=== PATIENT | female | born 1980 | race Caucasian/White ===

== ENCOUNTER → 2021-02-15 01:48 | Outpatient (CLI) | payer OTHER, SELFPAY ==
[2021-02-15 17:43] LABS: SARS-CoV-2 RNA PCR Negative
== END ==
PROVIDERS: Visit Provider Surgery Plastic and Reconstructive Surgery
DX: Z01.812 Encounter for preprocedural laboratory examination (principal); Z20.822 Contact with and (suspected) exposure to COVID-19
CPT/HCPCS: C9803; U0003; U0005

== ENCOUNTER 2021-02-18 07:21 | Day surgery (SDC) | payer OTHER, SELFPAY ==
[2021-02-18] VITALS (9 sets, daily range): BP systolic 97–118; BP diastolic 59–76; PULSE 55–84; RESP 12–17; TEMP 36.6–37.1; O2SAT 99–100; BMI 21.9
--- NOTE | 2021-02-18 07:05 | WPDANESEPPF ---
Anes - Initial Pre Proc Eval Procedure: Operation Date: 02/18/21 09:00 Proposed Procedures p Bilateral Breast Augmentation Mammoplasty - Gadiel Cleveland MD Date/Time: 02/18/21 07:05 Surgeon: Gadiel Cleveland MD Pre Op Diagnosis: Micromastia Patient Data Age: 40 Gender: F Height: Weight: Allergies Allergy/AdvReac Type Severity Reaction Status Date / Time No Known Allergies Allergy Verified 02/18/21 07:47 Home Medications Medication Instructions Recorded Confirmed Type docusate sodium 100 mg capsule 100 mg PO BID #21 cap 02/03/21 02/18/21 Rx ondansetron HCl 4 mg tablet 4 mg PO Q8H #14 tablet 02/03/21 02/18/21 Rx carisoprodol 350 mg tablet 350 mg PO TID PRN #21 tablet 02/09/21 02/18/21 Rx oxycodone-acetaminophen 5 mg-325 1 tablet PO Q6H PRN #15 tablet 02/09/21 02/18/21 Rx mg tablet Patient hx anesthesia problems: none Family hx anesthesia problems: none PMFSH Past Medical History Medical History (Updated 02/18/21 @ 07:05 by Luther Estrella DO) Anxiety Surgical History Surgical History History of History of shoulder surgery Social History Social History Smoking status: Smoker, status unknown Alcohol intake: current Drinks per week: 2 Substance use: never Last use: 01/11/2021 Living arrangements: with family Gender identity (if verbalized by the patient): Female Anes - Eval Final PreProcedure Day of Procedure 02/18/21 07:05 Patient weight: normal Heart: regular rate and rhythm Lungs: clear to auscultation and normal air movement Airway: Mallampati scale class II Neurological: alert and oriented Last oral intake: >/= 8 hours ASA classification: II Emergent: no Anesthetic plan: proceed Anesthesia type and monitoring: general LMA and standard monitoring Informed Consent: The patient's anesthetic plan and its attendant risks and benefits were discussed with the patient/family/POA. Questions were solicited and answers provided to the satisfaction of the patient/family/POA.
[2021-02-18] MEDS: LACTATED RINGERS 1,000 ML 30 ML IV CONT ×3 (08:04→10:12)
--- NOTE | 2021-02-18 08:31 | WPDHPUPDATE1 ---
History and Physical Update Update Date/Time: 02/18/21 08:31 History and Physical has been reviewed, including an updated exam of the patient. There are NO changes in the patient's condition. Risks, benefits, and alternatives have been discussed and questions answered. Patient agrees to proceed with procedure.
--- NOTE | 2021-02-18 08:44 | W.PM.PROC2 ---
Procedure Note - Detailed Date of Procedure 02/18/21 Pre-op Diagnosis Micromastia Post-op Diagnosis same Procedure Performed Bilateral Augmentation Mammaplasty Surgeon Gadiel Cleveland MD Anesthesia general Findings Bilateral Eris Soft Touch 520cc Right - REF# [id number] SN [id number] Left - REF# [id number] SN [id number] Description of Procedure She is here today for bilateral breast augmentation. Previously and again today the risks, benefits, alternatives were discussed in extensive detail. I wanted her to be very realistic about the risks involved as well as expectations. We discussed aftercare and what to monitor for. Made sure answered all of her questions to her satisfaction today and consent was obtained. Marked in the preoperative holding area with their verification. The patient was taken to the operating room placed supine on the operating table. Anesthesia was provided by anesthesiology. A surgical time-out was taken. We cleansed the skin and 1% lidocaine and 0.25% Marcaine with epinephrine was used anesthetize as a field block. She was prepped and draped in a standard sterile fashion. Tegaderm nipple Quick were placed. A 15 blade used to make an incision along the inframammary fold. Dissection was continued at 45 degree angle until the chest wall as identified. I incised the pectoralis major along its inferior border and completely released the inferior border leaving the medial border intact. I created a subpectoral pocket in the appropriate dimensions based on our preoperative planning for the implant. I then copiously irrigated with saline solution and verified a strict hemostasis. Next the use a triple antibiotic and Betadine containing solution to irrigate the pocket. I washed my gloves with the triple antibiotic and Betadine solution. We washed the implant immediately upon opening it with this solution and only opened it when we needed it. I used implant funnel and no-touch technique. The implant was introduced into the pocket using the funnel. Having verified positioning of the implant this was closed using 2-0 Vicryl followed by 3-0 Monocryl in a running subcuticular 4-0 Monocryl followed by tissue glue. Fluffs, Paul wrap, and surgical bra were placed. Patient was awoke and taken to PACU without difficulty. All instrument sponge counts were correct at the end of the case. Estimated Blood Loss 10 Drains No Packing No Pathology none sent Complications No immediate complications Condition stable Disposition PACU
[2021-02-18] MEDS: ceFAZolin SODIUM 2 GM/20 ML SW SYRINGE IV PUSH (09:05)
[2021-02-18] MEDS: LIDO 1%/EPINEPHRINE 1:100,000 20 ML VIAL 30 ML INFILTRATE (09:20)
[2021-02-18] MEDS: fentaNYL CITRATE INJ (*CRX) 100 MCG/2 ML VIAL 25 MCG IV PUSH (10:32)
[2021-02-18] MEDS: oxyCODONE HCL (*CRX) 5 MG TAB IR PO (11:23)
[2021-02-18] MEDS: ONDANSETRON HCL ODT 4 MG TABLET PO (11:50)
[2021-02-18] MEDS: SCOPOLAMINE 1.5 MG PATCH TRANSDERM (11:51)
--- NOTE | 2021-02-18 15:44 | WPDANESPN ---
Anes - Prog Note Post-Op Date/Time: 02/18/21 15:44 Cardiovascular status: normal Respiratory status: normal Airway patency: baseline Mental status: baseline Post-Op hydration status: normal Vital Signs: Last Vital Signs Temp 36.6 C 02/18/21 10:05 Pulse 64 02/18/21 11:06 Resp 14 02/18/21 11:06 BP 106/69 02/18/21 11:06 Pulse Ox 100 02/18/21 11:06 Pain Score (VAS): 0 I/O: Intake & Output 02/17/21 02/18/21 02/18/21 23:59 07:59 15:59 Intake Total 900 Balance 900 Post-procedural complaints: none Patient Feedback: Patient satisfied with anesthetic care. Other Findings: Patient vital signs have returned to baseline. Patient denies nausea or vomiting. Patient's pain under control. Patient ok for discharge.
== END 2021-02-18 12:00 | disposition home or self-care (01) ==
PROVIDERS: Visit Provider Surgery Plastic and Reconstructive Surgery
PROC: (CPT 19325; principal; 2021-02-18 09:00)
DX: N64.82 Hypoplasia of breast (principal)
CPT/HCPCS: 19325

== ENCOUNTER → 2023-06-07 13:03 | Outpatient (CLI) | payer OTHER, SELFPAY ==
--- NOTE | ~2023-06-07 | MM_ITS ---
EXAMINATION: MM scrn patricia implant BI [facility] HISTORY: Screening mammogram TECHNIQUE: Craniocaudal and mediolateral oblique 3-D tomosynthesis images with implant displacement a nd synthetic 2-D images were generated. Craniocaudal and mediolateral oblique views of the breasts wi thout implant displacement were obtained using full field digital mammography. CAD analysis was submi tted and interpreted. COMPARISON: No prior mammogram is available for comparison at this institution. BREAST PARENCHYMAL COMPOSITION: There are scattered areas of fibroglandular density. FINDINGS: RIGHT BREAST: A mass is present in the upper outer quadrant of the breast 6 cm from the nipple on the implant displaced views. LEFT BREAST: There is no evidence of suspicious mass, calcification, or architectural distortion to s uggest malignancy. IMPRESSION: 1. Right breast mass which may represent the patient's baseline however no comparison is currently av ailable. 2. Comparison with prior mammograms is necessary. BI-RADS Category 0: Incomplete: Needs comparison with prior mammograms. Reviewed, dictated and finalized at location A. IMPRESSION: 1. Right breast mass which may represent the patient's baseline however no comp arison is currently available. 2. Comparison with prior mammograms is necessary. BI-RADS Category 0: Incomplete: Needs comparison with prior mammograms.
== END ==
PROVIDERS: PCP Registered Nurse; Visit Provider Registered Nurse
DX: Z12.31 Encounter for screening mammogram for malignant neoplasm of breast (principal); R92.8 Other abnormal and inconclusive findings on diagnostic imaging of breast
CPT/HCPCS: 77063; 77067

== ENCOUNTER 2025-06-06 13:29 | Outpatient (CLI) | payer OTHER, SELFPAY ==
--- NOTE | ~2025-06-06 | MM_ITS ---
EXAMINATION: MM scrn patricia implant [facility] HISTORY: Screening mammogram TECHNIQUE: Craniocaudal and mediolateral oblique 3-D tomosynthesis images with implant displacement and synthetic 2-D images were generated. Craniocaudal and mediolateral oblique views of the breasts without implant displacement were obtained using full field digital mammography. CAD analysis was submitted and interpreted. COMPARISON: Comparison to multiple prior studies sequentially, with oldest reviewed study dated 02/14/2022. BREAST PARENCHYMAL COMPOSITION: Dense: The breasts are heterogeneously dense, which may obscure small masses FINDINGS: There is no evidence of suspicious mass, calcification, or architectural distortion to suggest malignancy in either breast. There has been no suspicious interval change. IMPRESSION: 1. No mammographic evidence of malignancy. 2. Recommend routine screening mammography in one year. BI-RADS Category 1: Negative Reviewed, dictated and finalized at location B.
== END 2025-06-06 13:30 | disposition home or self-care (01) ==
PROVIDERS: PCP Nurse Practitioner Obstetrics & Gynecology; Visit Provider Nurse Practitioner Obstetrics & Gynecology
DX: Z12.31 Encounter for screening mammogram for malignant neoplasm of breast (principal)
CPT/HCPCS: 77063; 77067